=== PATIENT | male | born 1960 | race Caucasian/White ===

== ENCOUNTER 2020-07-22 21:27 | Emergency (ER) | payer OTHER ==
[~2020-07-22] VITALS: Ht 172.7 cm; Wt 122.7 kg
[2020-07-22] MEDS ORDERED: IBUP-1114 PO (21:37)
[2020-07-22] MEDS ORDERED: LISI10TA22 PO (21:37)
[2020-07-22] MEDS ORDERED: HYDR-3490 PO (21:37)
[2020-07-22] MEDS ORDERED: ACET-683 PO (22:09)
[2020-07-22] MEDS ORDERED: CAPSAICIN 0.025% CR 60 GM TOP STA (22:10)
[2020-07-22] MEDS ORDERED: LIDOCAINE 4% CREAM 5GM (LMX4) TOP ONE (22:25)
--- NOTE | 2020-07-22 23:22 | REPVR ---
PROCEDURE INFORMATION: Exam: XR Right Knee Exam date and time: 07/22/2020 10:43 PM Age: 60 years old Clinical indication: Other: Knee pain, unable to wb TECHNIQUE: Imaging protocol: XR Right knee. Views: 4 or more views. COMPARISON: No relevant prior studies available. FINDINGS: Bones/joints: Mild degenerative joint disease. Soft tissues: Normal. IMPRESSION: No acute findings. Electronically signed by: Ralf Esqueda On 07/22/2020 23:22:22 PM
[2020-07-22] MEDS ORDERED: CAPS0.022 TOP (23:59)
[2020-07-22] MEDS ORDERED: VOLT1GEL15 TOP (23:59)
[2020-07-23] MEDS ORDERED: VOLT1GEL15 TOP (00:01)
[2020-07-23] MEDS ORDERED: CAPS0.022 TOP (00:01)
[2020-07-23 00:02] VITALS: BP 133/80
== END 2020-07-23 00:20 | disposition home or self-care (01) ==
LOC: M ED 21:27
DX: M25.561 Pain in right knee (principal); I10 Essential (primary) hypertension; E78.5 Hyperlipidemia, unspecified; Z79.899 Other long term (current) drug therapy